=== PATIENT | female | born 1930 | race Caucasian/White ===

== ENCOUNTER 2017-11-10 08:30 | Observation (INO) | payer OTHER ==
[~2017-11-10] VITALS: Ht 177.8 cm; Wt 86.2 kg
[2017-11-10 09:18] LABS: BASOPHILS # (AUTO) 0.01 x10^3/uL (0-0.1); BASOPHILS % (AUTO) 0 % (0-1); EOSINOPHILS # (AUTO) 0.11 x10^3/uL (0-0.4); EOSINOPHILS % (AUTO) 2 % (1-7); LYMPHOCYTES # (AUTO) 1.04 x10^3/uL (1-3.4); LYMPHOCYTES % (AUTO) 17 % (22-44); MD NO; MEAN CORPUSCULAR HEMOGLOBIN 24.4 pg (27.0-34.8); MEAN CORPUSCULAR HGB CONC 32.2 g/dL (32.4-35.8); MEAN CORPUSCULAR VOLUME 75.8 fL (80-100); MEAN PLATELET VOLUME 8.4 fL (7.4-10.4); MONOCYTES # (AUTO) 0.28 x10^3/uL (0.2-0.8); MONOCYTES % (AUTO) 5 % (2-9); NEUTROPHILS # (AUTO) 4.71 x10^3/uL (1.8-6.8); NEUTROPHILS % (AUTO) 77 % (42-75); PLATELET COUNT 265 x10^3/uL (130-400); RED BLOOD COUNT 4.01 x10^6/uL (3.82-5.3); RED CELL DISTRIBUTION WIDTH 20.2 % (9.6-15.2)
[2017-11-10 09:32] LABS: ALANINE AMINOTRANSFERASE 19 U/L (12-78); ALBUMIN 3.4 g/dL (3.4-5.0); ANION GAP 8 mmol/L (5-15); CALCIUM 8.1 mg/dL (8.5-10.1); CHLORIDE 106 mmol/L (98-107); CREATININE 0.73 mg/dL (0.55-1.02)
[2017-11-10 09:35] LABS: ALKALINE PHOSPHATASE 106 U/L (45-117); BILIRUBIN,TOTAL 0.4 mg/dL (0.2-1.0); TOTAL PROTEIN 6.8 g/dL (6.4-8.2); TROPONIN I < 0.015 ng/mL (0.000-0.045)
[2017-11-10] MEDS ORDERED: ONDANSETRON ODT 4 MG PO PRN (12:30)
[2017-11-10] MEDS: ENOXAPARIN 40 MG/0.4 ML SQ SCH (12:30)
[2017-11-10] MEDS ORDERED: ONDANSETRON 2MG/ML, 2ML IVPush PRN (12:30)
[2017-11-10] MEDS ORDERED: POLYETHYLENE GLYCOL 17 GM PACKET PO PRN (12:30)
[2017-11-10] MEDS ORDERED: LABETALOL 5MG/ML, 20ML IVPush PRN (12:30)
[2017-11-10 12:56] LABS: TOTAL IRON BINDING CAPACITY 371 mcg/dL (250-450)
[2017-11-10 13:00] LABS: % IRON SATURATION 6 % (20-55); IRON LEVEL 23 mcg/dL (50-170); TROPONIN I < 0.015 ng/mL (0.000-0.045)
[2017-11-10] MEDS ORDERED: MULT-717 PO (13:16)
[2017-11-10 13:22] LABS: FREE T4 (FREE THYROXINE) 1.06 ng/dL (0.76-1.46)
[2017-11-10 13:23] LABS: FOLATE LEVEL > 20.0 ng/mL (3.1-17.5)
[2017-11-10 13:26] VITALS: BP 162/73
[2017-11-10 13:33] VITALS: BP 157/92
[2017-11-10 13:35] VITALS: BP 162/82
[2017-11-10] MEDS: SODIUM CHLORIDE 0.9% 1,000 ML IV SCH (13:43)
[2017-11-10] MEDS ORDERED: CYANOCOBALAMIN 1,000 MCG/ML, 1ML IM ONE (16:00)
[2017-11-10 16:21] LABS: INTERNATIONAL NORMALIZED RATIO 1.03 (0.93-1.1); PROTHROMBIN TIME 10.7 Seconds (9.6-11.5)
[2017-11-10 19:12] LABS: TROPONIN I 0.018 ng/mL (0.000-0.045)
[2017-11-10 20:49] VITALS: BP 151/73
[2017-11-10] MEDS: FAMOTIDINE 20 MG/2 ML IVPush SCH (21:19)
[2017-11-11] MEDS: SODIUM CHLORIDE 0.9% 1,000 ML IV SCH ×2 (00:03→08:09)
[2017-11-11 03:11] VITALS: BP 147/72
[2017-11-11 05:50] LABS: BASOPHILS # (AUTO) 0.04 x10^3/uL (0-0.1); BASOPHILS % (AUTO) 1 % (0-1); EOSINOPHILS # (AUTO) 0.15 x10^3/uL (0-0.4); EOSINOPHILS % (AUTO) 2 % (1-7); LYMPHOCYTES # (AUTO) 1.93 x10^3/uL (1-3.4); LYMPHOCYTES % (AUTO) 29 % (22-44); MD NO; MEAN CORPUSCULAR HEMOGLOBIN 24.8 pg (27.0-34.8); MEAN CORPUSCULAR HGB CONC 32.4 g/dL (32.4-35.8); MEAN CORPUSCULAR VOLUME 76.6 fL (80-100); MEAN PLATELET VOLUME 8.7 fL (7.4-10.4); MONOCYTES # (AUTO) 0.47 x10^3/uL (0.2-0.8); MONOCYTES % (AUTO) 7 % (2-9); NEUTROPHILS # (AUTO) 4.13 x10^3/uL (1.8-6.8); NEUTROPHILS % (AUTO) 62 % (42-75); PLATELET COUNT 231 x10^3/uL (130-400)
[2017-11-11 06:04] LABS: CHLORIDE 111 mmol/L (98-107)
[2017-11-11 06:23] LABS: ALANINE AMINOTRANSFERASE 16 U/L (12-78); ALBUMIN 2.9 g/dL (3.4-5.0); ALKALINE PHOSPHATASE 88 U/L (45-117); ANION GAP 5 mmol/L (5-15); BILIRUBIN,TOTAL 0.4 mg/dL (0.2-1.0); CALCIUM 7.9 mg/dL (8.5-10.1); CREATININE 0.51 mg/dL (0.55-1.02); TOTAL PROTEIN 6.2 g/dL (6.4-8.2)
[2017-11-11] MEDS: FAMOTIDINE 20 MG/2 ML IVPush SCH (08:07)
[2017-11-11 08:39] VITALS: BP 161/82
[2017-11-11] MEDS ORDERED: IRON SUCROSE COMPLEX 100MG/5ML IV SCH (09:00)
[2017-11-11] MEDS ORDERED: SENNA/DOCUSATE TABLET PO SCH (09:00)
[2017-11-11] MEDS: ENOXAPARIN 40 MG/0.4 ML SQ SCH (11:29)
[2017-11-11] MEDS ORDERED: SODIUM CHLORIDE 0.9% 1,000ML IVBOLUS ONE (15:00)
[2017-11-11 15:59] VITALS: BP 176/75
[2017-11-11] MEDS ORDERED: METO25TA35 PO (16:16)
[2017-11-11] MEDS ORDERED: METOPROLOL TARTRATE 25 MG TABLET PO ONE (16:30)
== END 2017-11-11 16:49 | disposition home or self-care (01) ==
LOC: ED 10:18 → INTOOBSV 10:30 → EDIP 10:30 → 4EST 13:07
PROVIDERS: ADMIT Hospitalist; ATTEND Hospitalist
DX: R55 Syncope and collapse (principal); D50.9 Iron deficiency anemia, unspecified; E53.8 Deficiency of other specified B group vitamins; I27.20 Pulmonary hypertension, unspecified; K64.9 Unspecified hemorrhoids; Z82.49 Family history of ischemic heart disease and other diseases of the circulatory system
CPT/HCPCS: 36415; 71046; 80053; 82607; 82728; 82746; 83540; 83550; 83735; 84100; 84439; 84443; 84484; 85025; 85610; 93005; 93306; 93880; 96361; 96372; 96374; 96375; 96376; 97161; 97166; 99285; G0378; J1756; J3420; J7030; S0028